=== PATIENT | female | born 1950 | race Caucasian/White ===

== ENCOUNTER 2017-08-15 10:25 | Emergency (ER) | payer MEDICARE ==
--- NOTE | 2017-08-15 11:19 | RAD ---
TWO VIEWS OF THE RIGHT HIP: COMPARISON: None. HISTORY: Fall with right hip pain. FINDINGS: Two views of the right hip show no evidence of acute fracture or dislocation of the femur. However, there appears to be a fracture of the right inferior pubic ramus. No other pelvic fractures are ap preciated. IMPRESSION: Right inferior pubic ramus. A dedicated pelvic radiograph is recommended for better characterizatio n. POS: [facility]
--- NOTE | 2017-08-15 11:20 | RAD ---
THREE VIEWS OF THE RIGHT ANKLE: COMPARISON: None. HISTORY: Fall with right ankle pain. FINDINGS: Three views of the right ankle show no evidence of acute fracture or dislocation. No degenerative c hanges are seen. No soft tissue swelling is present. IMPRESSION: Unremarkable exam. POS: [facility]
--- NOTE | 2017-08-15 11:20 | RAD ---
THREE VIEWS RIGHT FOOT: Comparison: None. History: Right foot pain after fall. FINDINGS: Three views of the right foot shows no evidence of acute fracture or dislocation. There is a sclerot ic lesion in the second metatarsal which likely represents a benign osseous lesion and could represe nt a large bone island. No focal soft tissue thickening is seen. IMPRESSION: No evidence of acute osseous abnormality. POS: [facility]
--- NOTE | 2017-08-15 12:08 | RAD ---
ONE VIEW PELVIS: HISTORY: Fall. Pain. COMPARISON: None. FINDINGS: Limited evaluation of the sacral ala due to bowel gas and fecal material. The iliac bones are intac t. The iliac bones are intact. There is a right inferior pubic ramus fracture. There is a presume d right superior pubic ramus fracture, which may abut the symphysis pubis. Fracture lucency may be nondisplaced. Contour of the left and right femoral head are maintained. Hip joint spaces are symm etric. IMPRESSION: 1. Right inferior and probable superior pubic ramus fractures. 2. Incomplete evaluation of the sacrum. If there is concern for sacral injury, CT can be performed . POS: [facility]
[2017-08-15] MEDS ORDERED: HYDROcodone/Acetaminophen 5/325 mg Tablet ONE (12:18)
== END 2017-08-15 12:34 | disposition home or self-care (01) ==
LOC: SCSER 10:25
DX: S32.591A Other specified fracture of right pubis, initial encounter for closed fracture (principal); S86.311A Strain of muscle(s) and tendon(s) of peroneal muscle group at lower leg level, right leg, initial encounter; W18.30XA Fall on same level, unspecified, initial encounter
CPT/HCPCS: 72170

== ENCOUNTER 2018-10-01 09:45 | Outpatient (CLI) | payer MEDICARE, OTHER ==
--- NOTE | 2018-10-01 12:07 | MRI ---
MRI BRAIN WITH AND WITHOUT CONTRAST PITUITARY PROTOCOL: COMPARISON: 10/21/2014, 10/17/2016, 07/27/2015 TECHNIQUE: Brain and pituitary gland MRI is performed with and without intravenous Gadolinium administration. M ultisequential, multiplanar imaging is performed. FINDINGS: BRAIN: No brain parenchymal mass, mass effect, or midline shift. Brain volume is age appropriate. Cortical vasquez white matter differentiation is preserved. Ventricles and sulci are patent and symmetr ic. Stable white matter hyperintensities due to chronic small vessel ischemic changes. Central arterial flow voids are maintained. Absent restricted diffusion. The calvarium has a normal T1 marrow signal intensity. Midline brain parenchymal structures are unremarkable. There is stable opacification of the left mastoid air cells. The right mastoid air cells are adequat angel aeration. Mild mucosal thickening of the paranasal sinuses. No pathologic enhancement of the brain parenchyma. There is stable enhancement involving the left internal canal, compatible with the previously noted v estibular schwannoma. There is evidence of a macroadenoma involving the right aspect of the pituitar y gland. Currently, this adenoma measures 0.7 cm anteroposterior x 0.9 cm craniocaudal x 1 cm mediol ateral. There has been an increase in size when compared to the most recent previous exam. IMPRESSION: 1. Enlarging right pituitary gland macroadenoma. 2. Stable left vestibular schwannoma. POS: [facility]
[2018-10-01] MEDS ORDERED: Gadobenate Dimeglumine 529 MG/1 ML (20ML VIAL) ONE (13:27)
== END 2018-10-01 09:46 | disposition home or self-care (01) ==
LOC: TBSIIMAG 09:45
PROVIDERS: ATTEND Neurological Surgery
DX: D49.7 Neoplasm of unspecified behavior of endocrine glands and other parts of nervous system (principal); D35.2 Benign neoplasm of pituitary gland; D33.3 Benign neoplasm of cranial nerves
CPT/HCPCS: 70553; 82565; A9579

== ENCOUNTER 2022-11-16 11:35 | Outpatient (CLI) | payer MEDICARE, OTHER | END 2022-11-16 11:36 | disposition home or self-care (01) | LOC: MRI 11:35 → SCSMRI 11:36 | PROVIDERS: ATTEND Neurological Surgery | DX: D35.2 Benign neoplasm of pituitary gland (principal); D33.3 Benign neoplasm of cranial nerves | CPT/HCPCS: 70553; 82565 ==

== ENCOUNTER 2024-10-14 08:14 | Outpatient (CLI) | payer MEDICARE, OTHER | END 2024-10-14 08:15 | disposition home or self-care (01) | LOC: MRI 08:14 | PROVIDERS: ATTEND Neurological Surgery | DX: D35.2 Benign neoplasm of pituitary gland (principal); D33.3 Benign neoplasm of cranial nerves | CPT/HCPCS: 36415; 70553; 76376; 82565 ==